=== PATIENT | male | born 1995 | race Caucasian/White ===

== ENCOUNTER 2021-09-08 08:13 | Emergency (ER) | payer MEDICAID ==
[~2021-09-08] VITALS: Ht 184.2 cm; Wt 80.0 kg
[2021-09-08] MEDS ORDERED: DiphenhydrAMINE HCL 25 MG CAPSULE PO ONE (09:00)
[2021-09-08] MEDS ORDERED: HALOPERIDOL 5 MG TABLET PO ONE (09:00)
[2021-09-08] MEDS ORDERED: LORazepam 1 MG TABLET PO ONE (09:00)
[2021-09-08 10:00] VITALS: BP 144/61
== END 2021-09-08 10:07 | disposition home or self-care (01) ==
LOC: EMS 08:14
DX: F22 Delusional disorders (principal); F15.10 Other stimulant abuse, uncomplicated; F41.9 Anxiety disorder, unspecified
CPT/HCPCS: 99284; Z7502; Z7610

== ENCOUNTER 2021-09-09 20:38 | Emergency (ER) | payer MEDICAID ==
[~2021-09-09] VITALS: Ht 182.9 cm; Wt 72.7 kg
[2021-09-09] MEDS ORDERED: ONDANSETRON HCL 4 MG TABLET PO ONE (21:15)
[2021-09-09] MEDS ORDERED: FAMOTIDINE 20 MG TABLET PO ONE (21:15)
[2021-09-09] MEDS ORDERED: MAG HYDROX/AL HYDROX/SIMETH 30 ML SUSP UDCUP PO ONE (21:15)
[2021-09-09 21:27] LABS: BASOPHILS % (AUTO) 0.9 % (0.0-2.0); EOSINOPHILS % (AUTO) 2.1 % (1.0-6.0); HEMATOCRIT 32.9 % (41-53); HEMOGLOBIN 10.7 g/dL (13.5-17.5); LYMPHOCYTES # (AUTO) 1.4 K/uL (1.0-4.8); LYMPHOCYTES % (AUTO) 25.8 % (22.0-44.0); MEAN CORPUSCULAR HEMOGLOBIN 24.9 pg (26.0-34.0); MEAN CORPUSCULAR HGB CONC 32.4 G/dL (31.0-37.0); MEAN CORPUSCULAR VOLUME 77 fL (80-100); MONOCYTES # (AUTO) 0.9 K/uL (0.1-1.0); MONOCYTES % (AUTO) 16.4 % (2.0-9.0); NEUTROPHILS % (AUTO) 54.8 % (40.0-70.0); PLATELET COUNT (AUTO) 168 K/uL (150-450); RED BLOOD CELL COUNT(AUTO) 4.29 MIL/uL (4.50-5.90); RED CELL DISTRIBUTION WIDTH 16.6 % (11.5-14.5)
[2021-09-09 21:38] LABS: ANION GAP 7 mmol/L (8-16); CALCIUM, TOTAL 9.2 mg/dL (8.8-10.5); CARBON DIOXIDE 32 mmol/L (22-29); CHLORIDE 98 mmol/L (98-107); CREATININE 0.87 mg/dL (0.60-1.30); GLOMERULAR FILTR. RATE CALC > 60 mL/min (>60); GLUCOSE,RANDOM 103 mg/dL (70-110); POTASSIUM 3.1 mmol/L (3.5-5.1); SODIUM SERUM 137 mmol/L (136-145); UREA NITROGEN, BLOOD 16 mg/dL (7-18)
[2021-09-09 21:44] LABS: ALANINE AMINOTRANSFERASE 32 U/L (12-78); ALKALINE PHOSPHATASE 64 U/L (46-116); ASPARTATE AMINOTRANSFERASE 39 U/L (15-37); BILIRUBIN,TOTAL 1.2 mg/dL (0.1-1.0); LIPASE 44 U/L (73-393); TOTAL PROTEIN, SERUM 7.8 g/dL (6.4-8.2)
[2021-09-09] MEDS ORDERED: POTASSIUM CHLORIDE 20 MEQ ER TABLET PO ONE (22:00)
[2021-09-09] MEDS ORDERED: KETOROLAC TROMETHAMINE 30 MG/ML VIAL IM ONE (22:15)
[2021-09-10 00:08] VITALS: BP 112/70
== END 2021-09-10 00:08 | disposition home or self-care (01) ==
LOC: EMS 20:42
DX: R10.13 Epigastric pain (principal); F41.9 Anxiety disorder, unspecified; F11.90 Opioid use, unspecified, uncomplicated; F15.90 Other stimulant use, unspecified, uncomplicated
CPT/HCPCS: 76700; 80053; 83690; 85025; 96372; 99284; G0480; J1885; Q0162

== ENCOUNTER 2023-04-23 18:11 | Inpatient (IN) | payer MEDICAID ==
[~2023-04-23] VITALS: Ht 177.8 cm; Wt 72.7 kg
[2023-04-23 19:14] LABS: BASOPHILS % (AUTO) 0.6 % (0.0-2.0); EOSINOPHILS % (AUTO) 0.1 % (1.0-6.0); HEMATOCRIT 36.1 % (41-53); HEMOGLOBIN 11.6 g/dL (13.5-17.5); MEAN CORPUSCULAR HEMOGLOBIN 25.3 pg (26.0-34.0); MEAN CORPUSCULAR HGB CONC 32.1 G/dL (31.0-37.0); MEAN CORPUSCULAR VOLUME 79 fL (80-100); MONOCYTES # (AUTO) 1.1 K/uL (0.1-1.0); MONOCYTES % (AUTO) 9.3 % (2.0-9.0); NEUTROPHILS # (AUTO) 8.5 K/uL (1.8-7.7); PLATELET COUNT (AUTO) 237 K/uL (150-450); RED BLOOD CELL COUNT(AUTO) 4.58 MIL/uL (4.50-5.90); RED CELL DISTRIBUTION WIDTH 18.9 % (11.5-14.5)
[2023-04-23 19:22] LABS: ANION GAP 15 mmol/L (8-16); CALCIUM, TOTAL 9.3 mg/dL (8.8-10.5); CARBON DIOXIDE 25 mmol/L (22-29); CHLORIDE 99 mmol/L (98-107); CREATININE 0.81 mg/dL (0.60-1.30); GLOMERULAR FILTR. RATE CALC > 60 mL/min (>60); GLUCOSE,RANDOM 121 mg/dL (70-110); POTASSIUM 3.5 mmol/L (3.5-5.1); SODIUM SERUM 139 mmol/L (136-145)
[2023-04-23 19:30] LABS: B-TYPE NATRIURETIC PEPTIDE 36 pg/mL (0-100)
[2023-04-23] MEDS ORDERED: LORazepam 2 MG/ML VIAL IM ONE (19:30)
[2023-04-23] MEDS ORDERED: BACITRACIN 0.9 GM PACKET OINTMENT TP ONE (19:30)
[2023-04-23] MEDS ORDERED: DiphenhydrAMINE HCL 50 MG/ML VIAL IM ONE (19:30)
[2023-04-23] MEDS ORDERED: HALOPERIDOL LACTATE 5 MG/ML VIAL IM ONE (19:30)
[2023-04-23 19:41] LABS: COVID AG,FIA SOURCE NASOPHARYNGEAL
[2023-04-23 19:48] LABS: ALANINE AMINOTRANSFERASE 32 U/L (12-78); ALBUMIN 4.2 g/dL (3.4-5.0); ALKALINE PHOSPHATASE 99 U/L (46-116); ASPARTATE AMINOTRANSFERASE 53 U/L (15-37); BILIRUBIN,TOTAL 0.8 mg/dL (0.1-1.0); CREATINE KINASE, TOTAL ONLY 1201 U/L (39-308); TOTAL PROTEIN, SERUM 8.5 g/dL (6.4-8.2)
[2023-04-23] MEDS ORDERED: SODIUM CHLORIDE 0.9% 1,000 ML IV ONE (20:00)
[2023-04-23] MEDS ORDERED: ACETAMINOPHEN 325 MG TABLET PO PRN ×2 (21:15→21:30)
[2023-04-23] MEDS ORDERED: 0.9% SODIUM CHLORIDE 10 ML SYRINGE IVP PRN ×2 (21:15→21:30)
[2023-04-23] MEDS ORDERED: ONDANSETRON HCL 4 MG/2 ML VIAL IVP PRN ×2 (21:15→21:30)
[2023-04-24 06:22] LABS: AMPHET/METH SCREEN,URINE POSITIVE (NEGATIVE); BARBITURATE SCREEN, URINE NEGATIVE (NEGATIVE); BENZODIAZEPINES SCREEN,URINE NEGATIVE (NEGATIVE); CANNABINOID SCREEN,URINE POSITIVE (NEGATIVE); COCAINE SCREEN,URINE NEGATIVE (NEGATIVE); METHADONE SCREEN, URINE NEGATIVE (NEGATIVE); OPIATE SCREEN,URINE NEGATIVE (NEGATIVE); PHENCYCLIDINE SCREEN,URINE NEGATIVE (NEGATIVE)
[2023-04-24 07:46] LABS: BASOPHILS % (AUTO) 0.8 % (0.0-2.0); EOSINOPHILS % (AUTO) 0.6 % (1.0-6.0); HEMATOCRIT 32.9 % (41-53); HEMOGLOBIN 10.6 g/dL (13.5-17.5); LYMPHOCYTES # (AUTO) 1.2 K/uL (1.0-4.8); MEAN CORPUSCULAR HEMOGLOBIN 25.8 pg (26.0-34.0); MEAN CORPUSCULAR HGB CONC 32.3 G/dL (31.0-37.0); MEAN CORPUSCULAR VOLUME 80 fL (80-100); MONOCYTES # (AUTO) 0.7 K/uL (0.1-1.0); NEUTROPHILS # (AUTO) 3.9 K/uL (1.8-7.7); NEUTROPHILS % (AUTO) 66.6 % (40.0-70.0); PLATELET COUNT (AUTO) 187 K/uL (150-450); RED BLOOD CELL COUNT(AUTO) 4.13 MIL/uL (4.50-5.90); RED CELL DISTRIBUTION WIDTH 18.9 % (11.5-14.5)
[2023-04-24 08:01] LABS: ALANINE AMINOTRANSFERASE 26 U/L (12-78); ALBUMIN 3.4 g/dL (3.4-5.0); ALKALINE PHOSPHATASE 76 U/L (46-116); ANION GAP 7 mmol/L (8-16); ASPARTATE AMINOTRANSFERASE 57 U/L (15-37); BILIRUBIN,TOTAL 1.1 mg/dL (0.1-1.0); CALCIUM, TOTAL 8.5 mg/dL (8.8-10.5); CARBON DIOXIDE 27 mmol/L (22-29); CHLORIDE 105 mmol/L (98-107); CREATININE 0.74 mg/dL (0.60-1.30); GLOMERULAR FILTR. RATE CALC > 60 mL/min (>60); GLUCOSE,RANDOM 99 mg/dL (70-110); SODIUM SERUM 139 mmol/L (136-145); TOTAL PROTEIN, SERUM 6.8 g/dL (6.4-8.2)
[2023-04-24 08:47] LABS: CREATINE KINASE, TOTAL ONLY 1445 U/L (39-308)
[2023-04-24 09:15] VITALS: BP 128/65; PULSE 70; RESP 19; TEMP 97.3
[2023-04-24 12:05] VITALS: BP 109/40; PULSE 97; RESP 19; TEMP 98
[2023-04-24] MEDS ORDERED: BISACODYL 10 MG RECTAL RECTAL SUPPOSITORY PR PRN (13:45)
[2023-04-24] MEDS ORDERED: IPRATROPIUM BROMIDE 0.5 MG/2.5 ML NEB SOLUTION NEB PRN (13:45)
[2023-04-24] MEDS ORDERED: ALBUTEROL SULFATE 2.5 MG/0.5 ML NEB SOLUTION NEB PRN (13:45)
[2023-04-24] MEDS ORDERED: MAGNESIUM HYDROXIDE SUSPENSION 30 ML UDCUP PO PRN (13:45)
[2023-04-24] MEDS ORDERED: HYDROCODONE/ACETAMINOPHEN 5-325 MG TABLET PO PRN (13:45)
[2023-04-24] MEDS ORDERED: ZOLPIDEM TARTRATE 5 MG TABLET PO PRN (13:45)
[2023-04-24] MEDS ORDERED: ACETAMINOPHEN 325 MG TABLET PO PRN (13:45)
[2023-04-24] MEDS ORDERED: ONDANSETRON HCL 4 MG/2 ML VIAL IVP PRN (13:45)
[2023-04-24] MEDS ORDERED: MORPHINE SULFATE 2 MG/ML SYRINGE IVP PRN (13:45)
[2023-04-24] MEDS: SODIUM CHLORIDE 0.9% 1,000 ML IV SCH ×2 (14:33→20:25)
[2023-04-24 16:03] VITALS: BP 158/86; PULSE 83; RESP 19; TEMP 97.7
[2023-04-24] MEDS: HEPARIN SODIUM,PORCINE 5,000 UNITS/ML VIAL SQ SCH ×2 (17:17→23:24)
[2023-04-24 20:00] VITALS: BP 100/52; PULSE 68; RESP 20; TEMP 98.3
[2023-04-24] MEDS: DOCUSATE SODIUM 100 MG CAPSULE PO SCH (20:18)
[2023-04-25] MEDS: SODIUM CHLORIDE 0.9% 1,000 ML IV SCH ×6 (03:14→22:46)
[2023-04-25 04:22] VITALS: BP 101/61; PULSE 65; RESP 19; TEMP 98.4
[2023-04-25 07:25] VITALS: BP 104/64; PULSE 68; RESP 18; TEMP 98.5
[2023-04-25] MEDS: HEPARIN SODIUM,PORCINE 5,000 UNITS/ML VIAL SQ SCH ×3 (08:37→23:44)
[2023-04-25] MEDS: PANTOPRAZOLE SODIUM 40 MG/VIAL IVP SCH (08:44)
[2023-04-25] MEDS: DOCUSATE SODIUM 100 MG CAPSULE PO SCH ×2 (08:45→21:22)
[2023-04-25 15:05] VITALS: BP 116/68; PULSE 72; RESP 18; TEMP 97.8
[2023-04-25 19:30] VITALS: BP 100/50; PULSE 60; RESP 18; TEMP 98.7
[2023-04-25 20:00] VITALS: O2SAT 98
[2023-04-26 04:00] VITALS: BP 101/55; PULSE 57; RESP 18; TEMP 97.8
[2023-04-26] MEDS: SODIUM CHLORIDE 0.9% 1,000 ML IV SCH ×3 (06:06→16:20)
[2023-04-26] MEDS: PANTOPRAZOLE SODIUM 40 MG/VIAL IVP SCH (08:17)
[2023-04-26] MEDS: DOCUSATE SODIUM 100 MG CAPSULE PO SCH (08:18)
[2023-04-26 08:21] VITALS: BP 129/59; PULSE 69; RESP 19; TEMP 97.8
[2023-04-26] MEDS: HEPARIN SODIUM,PORCINE 5,000 UNITS/ML VIAL SQ SCH ×2 (08:21→16:00)
[2023-04-26] MEDS ORDERED: CLOTRIMAZOLE 1% 15 GM CREAM TP SCH (09:00)
[2023-04-26 12:17] VITALS: BP 102/52; PULSE 54; RESP 19; TEMP 98.1
== END 2023-04-26 16:20 | disposition left against medical advice (07) | DRG 351 ==
LOC: EMS 18:12 → 6N 04-24 01:30
PROVIDERS: ADMIT Hospitalist; ATTEND Hospitalist
DX: M62.82 Rhabdomyolysis (principal); D72.829 Elevated white blood cell count, unspecified; F20.9 Schizophrenia, unspecified; Z20.822 Contact with and (suspected) exposure to COVID-19; Z53.21 Procedure and treatment not carried out due to patient leaving prior to being seen by health care provider
CPT/HCPCS: 71045; 80053; 80307; 82550; 83880; 84484; 85025; 93005; 99285; C9113; G0480; J1200; J1630; J1644; J2060; J7030; 36415-L1; 36415-TC

== ENCOUNTER 2023-04-29 08:33 | Emergency (ER) | payer MEDICAID ==
[~2023-04-29] VITALS: Ht 177.8 cm; Wt 75.0 kg
[2023-04-29 08:34] VITALS: TEMP 98.2
[2023-04-29] MEDS ORDERED: DIVA500T53 PO (08:50)
[2023-04-29] MEDS ORDERED: DIVALPROEX SODIUM 500 MG ER TABLET PO ONE (09:00)
[2023-04-29 09:15] VITALS: BP 137/91; PULSE 96; RESP 18
== END 2023-04-29 10:13 | disposition home or self-care (01) ==
LOC: EMS 08:33
DX: M79.672 Pain in left foot (principal); M79.671 Pain in right foot
CPT/HCPCS: 99283